=== PATIENT | male | born 1990 | race Caucasian/White ===

== ENCOUNTER 2019-12-02 17:09 | Emergency (ER) | payer OTHER, SELFPAY ==
[2019-12-02 17:21] VITALS: BP 128/69; PULSE 75; RESP 16; TEMP 36.3; O2SAT 99
--- NOTE | 2019-12-02 17:30 | ED.SKABFB ---
HPI - Skin/Abscess/Foreign Bdy General Chief complaint: Skin/Abscess/Foreign Body Stated complaint: Rash Time Seen by Provider: 12/02/19 17:30 Source: patient Mode of arrival: ambulatory Limitations: no limitations History of Present Illness HPI narrative: Zion Kumar is a 29 yo male with no PMH who comes to express care for a red rash on the right side of his chest that wraps around to his right upper back and stays in the dermatome of his right chest, started about 4 to 5 days ago is mildly tender to touch small amount of itching, no weeping. Patient is shy and has multiple other questions about medical conditions Related Data Allergies Allergy/AdvReac Type Severity Reaction Status Date / Time No Known Allergies Allergy Verified 12/02/19 17:26 Review of Systems Review of Systems: Narrative: CONSTITUTIONAL: Denies fever, chills, sweats. EYES: Denies visual changes, redness, discharge. ENT: Denies rhinorrhea, congestion, sore throat, otalgia. CARDIOVASCULAR: Denies chest pain, palpitations, edema. RESPIRATORY: Denies dyspnea, wheezing, cough GASTROINTESTINAL: Denies abdominal pain, nausea, vomiting, diarrhea. GENITOURINARY: Denies dysuria, hematuria, abnormal discharge SKIN: Denies rash or itching. Has a red rash on the right upper chest that wraps around to his back NEUROLOGIC: Denies numbness, or focal weakness. PSYCHIATRIC: Denies anxiety or depression. [facility] Family History Family History Other Unknown family medical history Social History Social History Smoking status: Never smoker Alcohol intake: current Alcohol use details: Rare drinker Comments My nurses note Exam Narrative: Exam Narrative: GENERAL: This is a well-nourished, well-developed patient, in mild distress. HEAD: normocephalic, atraumatic. EYES: Sclera clear/white. Vision is grossly intact. EARS: External ears normal, Hearing grossly intact. NOSE: External nose normal without nasal discharge, nares without redness, no rhinorrhea. THROAT: Mucous membranes moist, NECK: Neck supple, non-tender CARDIOVASCULAR: Regular rate and rhythm without murmurs, gallops, or rubs. RESPIRATORY: Clear to auscultation. Breath sounds equal bilaterally. No wheezes, rales, or rhonchi. GASTROINTESTINAL: Abdomen soft, non-tender, SKIN: warm, intact with n red vesicular rash around the right nipple extending into the axilla and to the outside of her right back NEURO: awake, alert, and oriented to person, place and time. There were no obvious focal neurologic abnormalities. Steady gait EXTREMITIES: Normal range of motion. BACK: Nontender without deformity Course Course Emergency Course: Started on valacyclovir Patient had multiple questions about having been tested for an STD 2 years ago and what that meant and about constipation-we will give patient information about these things on the instructions and recommend a PCP Vital Signs Vital signs: Vital Signs Temperature 97.4 F L 12/02/19 17:21 Pulse Rate 75 12/02/19 17:21 Respiratory Rate 16 12/02/19 17:21 Blood Pressure 128/69 12/02/19 17:21 Pulse Oximetry 99 12/02/19 17:21 Temperature 97.4 F L 12/02/19 17:21 Pulse Rate 75 12/02/19 17:21 Respiratory Rate 16 12/02/19 17:21 Blood Pressure 128/69 12/02/19 17:21 Pulse Oximetry 99 12/02/19 17:21 MDM - Skin/Abscess/Foreign Bdy Differential Diagnosis Differential diagnosis: Likely herpes zoster, allergic reaction to drug, cellulitis, eczema, contact dermatitis and other Discharge Plan Discharge Clinical Impression: Herpes zoster Qualifiers: Herpes zoster complications: without complications Qualified Code(s): B02.9 - Zoster without complications Patient Disposition: Home, Self-Care Condition: Stable Instructions: Antibiotic Form, Constipation (ED), Sexually Transmitted Diseases (ED), Safe Sex Pract
== END 2019-12-02 17:57 | disposition home or self-care (01) ==
PROVIDERS: Emergency Provider Nurse Practitioner
DX: B02.9 Zoster without complications (principal)
CPT/HCPCS: 99213; G0463